=== PATIENT | female | born 1985 | race Caucasian/White ===

== ENCOUNTER 2016-12-18 10:37 | Day surgery (SDC) | payer OTHER ==
[2016-12-18 12:22] VITALS: BMI 24.2
[2016-12-18] MEDS ORDERED: LACTATED RINGERS 1,000 ML IV ONE (12:33)
[2016-12-18] MEDS ORDERED: LIDOCAINE 1% 20 ML VIAL (10MG/ML) FOR IV START INTRADERMA ONE (12:45)
[2016-12-18] MEDS ORDERED: DEXAMETHASONE SOD PHOSPHATE 10 MG/ML 1 ML VIAL IV ONE (12:47)
[2016-12-18] MEDS ORDERED: ONDANSETRON 4 MG/2 ML VIAL IVP ONE (12:48)
--- NOTE | 2016-12-18 12:53 | P.GSHP ---
History of Present Illness H&P Date: 12/18/16 Chief Complaint: Right upper quadrant pain This a 31-year-old female who was seen in my office yesterday. The patient was initially seen at [facility] emergency room and diagnosed with cholelithiasis. Her liver function tests were normal. Patient was originally scheduled for surgery next week. However the patient developed right upper quadrant pain and nausea this morning. Patient is scheduled for laparoscopic cholecystectomy today. - Constitutional Constitutional: Reports as per HPI Past Medical History Past Medical History: Seizure Disorder Additional Past Medical History / Comment(s): LAST SEIZURE 3 YRS AGO History of Any Multi-Drug Resistant Organisms: None Reported Past Surgical History: Section, Tubal Ligation Additional Past Surgical History / Comment(s): X 3 Past Anesthesia/Blood Transfusion Reactions: No Reported Reaction Past Psychological History: No Psychological Hx Reported Smoking Status: Current every day smoker Past Alcohol Use History: Occasional Past Drug Use History: None Reported Medications and Allergies Home Medications Medication Instructions Recorded Confirmed Type No Known Home Medications [No 12/18/16 12/18/16 History Known Home Medications] Allergies Allergy/AdvReac Type Severity Reaction Status Date / Time morphine Allergy Rash/Hives Verified 12/18/16 12:23 Surgical - Exam Vital Signs Temp Pulse Resp BP Pulse Ox 98.5 F 83 16 104/68 99 12/18/16 12:26 12/18/16 12:26 12/18/16 12:26 12/18/16 12:26 12/18/16 12:26 - General well developed, no distress - Eyes PERRL - ENT normal pinna - Neck no masses - Respiratory normal expansion - Cardiovascular Rhythm: regular - Abdomen Mild right upper quadrant pain Abdomen: soft Assessment and Plan Plan: Cholelithiasis Cholecystitis We'll perform laparoscopic cholecystectomy
[2016-12-18] MEDS ORDERED: ceFAZolin 2 GM in SODIUM CHLORIDE 0.9% 100 ML IVPB ONE (13:00)
[2016-12-18] MEDS ORDERED: HEPARIN SODIUM,PORCINE 5,000 UNIT/ML 1 ML VIAL SQ ONE (13:02)
[2016-12-18] MEDS ORDERED: PROPOFOL 10 MG/ML 20 ML VIAL IV ONE (13:19)
[2016-12-18] MEDS ORDERED: ROCURONIUM BROMIDE 10 MG/ML 10 ML VIAL IV ONE (13:19)
[2016-12-18] MEDS ORDERED: GLYCOPYRROLATE 0.2 MG/ML 2 ML VIAL ONE (13:19)
[2016-12-18] MEDS ORDERED: MIDAZOLAM 2 MG/2 ML VIAL ONE (13:19)
[2016-12-18] MEDS ORDERED: LIDOCAINE 1% INJ 10MG/ML (20 ML MDV) ONE (13:19)
[2016-12-18] MEDS ORDERED: SUCCINYLCHOLINE CHLORIDE 100 MG/5 ML SYR IV ONE (13:19)
[2016-12-18] MEDS ORDERED: HYDROmorphone (PF) 1 MG/ML ONE (13:19)
[2016-12-18] MEDS ORDERED: NEOSTIGMINE 1 MG/ML 10 ML VIAL ONE (13:19)
[2016-12-18] MEDS ORDERED: fentaNYL (PF) 50 MCG/ML 2 ML AMP ONE (13:19)
[2016-12-18] MEDS ORDERED: BUPIVACAIN-EPI 0.25%-1:200,000 30 ML VIAL SQ ONE (13:35)
--- NOTE | 2016-12-18 14:07 | P.OP ---
Date of Procedure: 12/18/16 Preoperative Diagnosis: Cholecystitis Postoperative Diagnosis: Cholecystitis Procedure(s) Performed: Laparoscopic cholecystectomy Anesthesia: ELIZA Surgeon: Kyaw Busch Estimated Blood Loss (ml): 5 Pathology: other (Gallbladder) Condition: stable Disposition: PACU Description of Procedure: The patient was placed on the operating table. The patient received a general endotracheal tube anesthesia. The patients abdomen was prepped and draped in the usual sterile fashion. Through an infraumbilical stab incision, the fascia of the anterior abdominal wall was grasped with a pair of Kochers and then the Veress needle was placed in the peritoneal cavity. Position of the Veress needle was confirmed with positive drop test. The abdomen was then insufflated. After adequate insufflation, the 10 mm trocar was placed in the peritoneal cavity. Following this the laparoscope was placed in the peritoneal cavity. The patient was placed in the head-up, right side up position and then a 5 mm trocar was placed in the right lateral and right subcostal position under direct visualization. A 8 mm trocar was placed in the epigastric position. The gallbladder was grasped in the fundus and infundibulum. Traction on the gallbladder was placed in the lateral and the cephalad positions. The gallbladder appeared to be inflamed. The triangle of Calot was visualized.. The cystic duct was bluntly dissected until the union of the cystic duct and common bile duct was seen. The cystic duct was then ligated using 2-0 Ethibond suture and the tie knot device. The cystic duct was then divided and sealed with the Harmonic scissors. The cystic artery divided and sealed with the Harmonic scissors. The gallbladder was then removed from the liver bed using Harmonic scissors. The gallbladder was then extracted through the epigastric port site. Operative field was checked for any bleeding spots and Harmonic scissors was used to coagulate the liver bed. The abdomen was irrigated. The trocars were removed. The skin was closed using interrupted 3-0 Vicryl suture. Dermabond dressing were applied. The patient tolerated the procedure well.
[2016-12-18 14:16] VITALS: TEMP 98.1
[2016-12-18 14:19] VITALS: RESP 16
[2016-12-18] MEDS: HYDROmorphone 1 MG/ML 1 ML SYRINGE IVP ONE ×2 (14:51→14:59)
[2016-12-18 16:14] VITALS: PULSE 80
[2016-12-18 16:32] VITALS: BP 121/85
== END 2016-12-18 16:55 | disposition home or self-care (01) ==
LOC: OR 10:37
PROVIDERS: ATTEND Surgery
DX: K80.10 Calculus of gallbladder with chronic cholecystitis without obstruction (principal); F17.200 Nicotine dependence, unspecified, uncomplicated; Z88.5 Allergy status to narcotic agent
CPT/HCPCS: 81025; 88304; 47562; J2250; J1644; J1100; J2710; J0690; J2405; J2001; J3010; J1170; J0330; J2704

== ENCOUNTER → 2018-05-06 | Outpatient (CLI) | payer OTHER ==
--- NOTE | 2018-05-06 09:56 | MM ---
Reason for exam: clinical finding. History: Took hormonal contraceptives for 3 years beginning at age 15. Physical Findings: Nurse did not find any significant physical abnormalities on exam. MG Diagnostic Mammo w CAD DAISHA Bilateral CC and MLO view(s) were taken. The breast tissue is heterogeneously dense. This may lower the sensitivity of mammography. There is no discrete abnormality. These results were verbally communicated with the patient and result sheet given to the patient on 05/06/18. ASSESSMENT: Negative, BI-RAD 1 RECOMMENDATION: Routine screening mammogram of both breasts at age 36. Manage patient on a clinical basis.
--- NOTE | 2018-05-06 10:01 | USB ---
Reason for exam: clinical finding. History: Took hormonal contraceptives for 3 years beginning at age 15. US Breast BILAT Right complete breast ultrasound includes all four quadrants, the retroareolar region and axilla. Finding demonstrates a 8 x 4 x 9mm lobular, cystic cluster at 10 o'clock. Left complete breast ultrasound includes all four quadrants, the retroareolar region and axilla. Finding demonstrates a 4 x 3 x 5cm oval, cystic lesion at 1 o'clock. These results were verbally communicated with the patient and result sheet given to the patient on 05/06/18. ASSESSMENT: Benign, BI-RAD 2 RECOMMENDATION: Routine screening mammogram of both breasts at age 36. Manage patient on a clinical basis.
== END | disposition home or self-care (01) ==
LOC: RADMAMWWP 07:55
PROVIDERS: ATTEND Family Medicine
DX: N64.4 Mastodynia (principal)
CPT/HCPCS: 77066

== ENCOUNTER → 2018-07-20 | Outpatient (CLI) | payer OTHER ==
[2018-07-20 11:55] VITALS: BP 118/79; PULSE 92; RESP 12; TEMP 97; BMI 29.9
--- NOTE | 2018-07-20 12:46 | P.GSHP ---
History of Present Illness H&P Date: 07/20/18 Patient is a 32 year old white female with a complaint of bilateral breast pain , but greater on the right. The pain is not related to her menstrual periods. The pain is constant. She had a bilateral mammogram done on which revealed heterogeneously dense breast bilaterally with no discrete lesions. She subsequently underwent bilateral ultrasound on 05-06-18 which revealed in the right breast and 8 x 9 mm lobular cystic cluster at 10:00 and in the left breast a 4 x 5 cm oval cystic lesion at 1:00. The patient has no history of any trauma to her breast or infection in the breast. The patient drinks about 10 oz of pepsi/day. She does not drink coffee or tea. She does not eat any large quantities of chocolate. The patient smokes approximately half a pack per day, for approximately 11 years. She lives with her boyfriend who also smokes. Family History: 1. sister: liver hepatoblastoma at 6 months old 2. maternal aunt: skin cancer 3. father: throat cancer (smoker) Hormonal History: menarche: 13 : 4, 1 , first at 18, breast fed: none preiods: regular; 1/month BCP: none hormones: none Past surgical history: 1. gallbladder 2. 3 c-sections 3. tubal-ligation Past medical history: 1. epilepsy not had a seizure in several years ALLERGIES: Morphine causes hives Social history: Smoking: Half a pack per day for approximately 11 years Alcohol:1/2 pint /day of whiskey drugs: none - Constitutional Constitutional: Reports sweats - EENT Comment: tongue a white crust on the side of tongue, swabbed by Dr. Lelo Otto Eyes: denies blurred vision, denies pain Ears: deny: decreased hearing, tinnitus Ears, nose, mouth and throat: Denies headache, Denies sore throat - Breasts Breasts: bilateral: as per HPI - Cardiovascular Cardiovascular: Denies chest pain, Denies shortness of breath - Respiratory Comment: smoker Respiratory: Denies cough, Denies 7 - Gastrointestinal Gastrointestinal: Denies abdominal pain, Denies diarrhea, Denies nausea, Denies vomiting - Genitourinary (Female) Genitourinary: Denies dysuria, Denies hematuria - Menstruation Menstruation: Reports as per HPI - Musculoskeletal Comment: none Musculoskeletal: Denies myalgias - Integumentary Integumentary: Denies pruritus, Denies rash - Neurological Comment: seizures since 6 months not have a recent seizure Neurological: Denies numbness, Denies weakness - Psychiatric Psychiatric: Denies anxiety, Denies depression - Endocrine Endocrine: Reports weight change - Hematologic/Lymphatic Comment: none - Allergic/Immunologic Comment: morphine Allergic/Immunologic: Reports as per HPI Past Medical History Past Medical History: Seizure Disorder Additional Past Medical History / Comment(s): LAST SEIZURE 3 YRS AGO History of Any Multi-Drug Resistant Organisms: None Reported Past Surgical History: Section, Tubal Ligation Additional Past Surgical History / Comment(s): X 3 Past Anesthesia/Blood Transfusion Reactions: No Reported Reaction Past Psychological History: No Psychological Hx Reported Smoking Status: Current every day smoker Past Alcohol Use History: Occasional Past Drug Use History: None Reported Medications and Allergies Home Medications Medication Instructions Recorded Confirmed Type Escitalopram [Lexapro] 10 tab PO DAILY 07/20/18 07/20/18 History Allergies Allergy/AdvReac Type Severity Reaction Status Date / Time morphine Allergy Rash/Hives Verified 12/18/16 12:23 Surgical - Exam Vital Signs Temp Pulse Resp BP Pulse Ox 97 F L 92 12 118/79 100 07/20/18 11:51 07/20/18 11:51 07/20/18 11:51 07/20/18 11:51 07/20/18 11:51 BMI 30kg/m2 - General well developed, moderate distress - Eyes normal ocular movement - ENT no hearing loss, no congestion - Neck no masses, trachea midline - Respiratory normal respiratory effort, clear to auscultation - Cardiovascular Rhythm: regular Heart Sounds: normal: S1, S2 - Abdomen Abdomen: soft, non tender, no guarding, no rigid, no rebound - Integumentary normal turger - Neurologic no disoriented, no combative - Musculoskeletal normal gait, normal posture - Psychiatric oriented to time, oriented to person, oriented to place, speech is normal, memory intact Breast examination: Right breast: Multi-positional exam fibrocystic changes stents breast no dominant masses or nodules of concern Right axilla: No adenopathy of concern Left breast: Multi-positional exam dense breast, fibrocystic changes, no discrete masses or nodules of concern, nipple retracts when patient raises her arms but comes right back out again Left axilla: No adenopathy of concern Addendum: The patient states that her nipple is been like this for many years Results Mammogram and ultrasound results reviewed Assessment and Plan Assessment: Impression: 1. Bilateral breast pain/not cylical 2. Fibrocystic changes bilaterally no radiographic evidence of malignancy 3.depression 4. seizure disorder 5. No evidence of any malignancy at this time Plan: 1. I have given the patient the book by Poppy John regarding breast pain I believe the pain is fibrocystic in nature related to the caffeine intake as well as smoking 2. We have discussed options to try to decrease the breast pain including avoiding caffeine and stopping smoking and primrose oil 3. Medical management of medical problems Again I discussed with the patient and her boyfriend that the pain is most likely fibrocystic in nature. I believe it may be related to her caffeine intake and nicotine use. We have discussed stopping these as well as beginning to use primrose oil. The patient understands this and will follow up in approximately 3 months time to see if modification of her behavior has affected the breast pain. Cc: Dr. Jami Jaimes
== END ==
LOC: WWCWWP 11:09
PROVIDERS: ATTEND Surgery
DX: Z53.9 Procedure and treatment not carried out, unspecified reason (principal)

== ENCOUNTER → 2018-10-20 | Outpatient (CLI) | payer OTHER ==
[2018-10-20 16:20] LABS: HCT 36.8 % (34.0-46.0); HGB 12.5 gm/dL (11.4-16.0); MCH 32.5 pg (25.0-35.0); MCHC 34.1 g/dL (31.0-37.0); MCV 95.4 fL (80.0-100.0); Platelet Count 171 k/uL (150-450); RBC 3.85 m/uL (3.80-5.40); RDW 12.6 % (11.5-15.5); WBC 5.5 k/uL (3.8-10.6)
[2018-10-20 16:45] LABS: T4, Free (Free Thyroxine) 1.14 ng/dL (0.78-2.19)
[2018-10-21 03:13] LABS: Progesterone 0.3 ng/mL
--- NOTE | 2018-10-21 05:25 | US ---
EXAMINATION TYPE: US pelvic complete DATE OF EXAM: 10/20/2018 COMPARISON: NONE CLINICAL HISTORY: 33-year-old female N93.8 DUB. TECHNIQUE: Transabdominal (TA Date of LMP: 10/17/2018 FINDINGS: EXAM MEASUREMENTS: Uterus: 10.0 x 3.9 x 5.3 cm Endometrial Stripe: 0.6 cm Right Ovary: 2.9 x 1.4 x 1.8 cm Left Ovary: 2.1 x 1.8 x 1.9 cm 1. Uterus: Anteverted with heterogeneous echotexture of the myometrium. No focal lesion. 2. Endometrium: wnl 3. Right Ovary: wnl with small follicles. 4. Left Ovary: wnl with small follicles. 5. Bilateral Adnexa: wnl 6. Posterior cul-de-sac: no free fluid IMPRESSION: 1. Heterogeneous myometrium could represent diffuse small fibroid change or adenomyosis. 2. Otherwise, normal follicular change in both ovaries. No specific abnormality otherwise seen on tra nsabdominal scanning.
== END | disposition home or self-care (01) ==
LOC: RADUSWWP 15:28
PROVIDERS: ATTEND Obstetrics & Gynecology
DX: N93.8 Other specified abnormal uterine and vaginal bleeding (principal); Z13.29 Encounter for screening for other suspected endocrine disorder
CPT/HCPCS: 36415; 76856; 82670; 83001; 83002; 84144; 84146; 84439; 84443; 84479; 85027

== ENCOUNTER → 2018-12-17 | Outpatient (CLI) | payer OTHER ==
[2018-12-17 15:24] VITALS: BP 112/76; PULSE 89; RESP 18; TEMP 98; BMI 34.2
--- NOTE | 2018-12-17 16:04 | P.PN ---
Subjective Progress Note Date: 12/17/18 Principal diagnosis: breast pain The patient is a 33 year old white female who was initially seen in July 2018. At that time she was complaining of bilateral breast pain. We discussed at that time that the pain was most likely fibrocystic in nature and at that time she was drinking Pepsi on a daily basis. She also smokes approximately half a pack per day and lives with her boyfriend who also smokes. The patient states that she is drinking decreased Pepsi at this time. However she and her boyfriend still smoke. She does not need any chocolate and large quantities. The patient has had a 50 pound weight gain over the past 5 months and contributes increased in breast size to the weight gain. It was after her breast increased in size that she noted the discomfort. The pain is not cyclical. Her right breast is larger than her left breast and when she does have pain it is usually greater on the right side than the left. Family history: 1. Sr.: Liver hepatoblastoma 6 months old 2. Maternal aunt skin cancer 3. Father throat cancer Hormonal history: Menarche: 13 Pregnancies: For, one , first live is 18, press-fit: None Periods: Regular: 1. Month control pills: Negative Hormones: Negative Past surgical history: 1. Cholecystectomy 2. 2 C-sections 2. Tubal ligation Past medical history: 1. Epilepsy she has not had a seizure in several years Social history: Smoking: Half a pack per day for approximately 11 years Alcohol: One half pint per day of whiskey Objective - Vital Signs Vital signs: Vital Signs Temp 98.0 F 12/17/18 15:20 Pulse 89 12/17/18 15:20 Resp 18 12/17/18 15:20 BP 112/76 12/17/18 15:20 Pulse Ox 99 12/17/18 15:20 Intake & Output 12/16/18 12/17/18 12/17/18 18:59 06:59 18:59 Weight 96.162 kg - Exam BMI 34.2 - Constitutional General appearance: Present: obese - EENT Eyes: Present: EOMI ENT: Present: hearing grossly normal - Neck Neck: Present: normal ROM - Respiratory Respiratory: - Cardiovascular Rhythm: regular Heart sounds: - Gastrointestinal General gastrointestinal: Present: soft - Integumentary Integumentary: Present: normal turgor - Musculoskeletal Musculoskeletal: Present: gait normal - Psychiatric Psychiatric: Present: A&O x's 3, appropriate affect, intact judgment & insight - Additional findings Additional findings: Breast examination: Right breast: Multi-positional exam fibrocystic changes, right breast slightly larger than left breast, tattoo over the right breast, no dominant masses or nodules of concern Right axilla: No adenopathy of concern Left breast: Multi-positional exam fibrocystic changes no dominant masses or nodules of concern Left axilla: No adenopathy of concern Assessment and Plan Assessment: Impression: 1. Mastodynia improved 2. Patient has decreased caffeine intake 3. Fibrocystic breast changes 4. Family history of cancer 5. No evidence of cancer at this time 6. Depression 7. Seizure disorder Plan: 1. Continue present therapy 2. Repeat bilateral mammogram at 36 3. Position exam is 6 months to see sooner if any changes in her breasts for which she is concerned Cc: Dr. Jami Vasques
== END | disposition home or self-care (01) ==
LOC: WWCWWP 15:01
PROVIDERS: ATTEND Surgery
DX: Z53.9 Procedure and treatment not carried out, unspecified reason (principal)

== ENCOUNTER 2019-04-08 08:38 | Day surgery (SDC) | payer OTHER ==
[2019-04-06 11:59] VITALS: BMI 36.4
[~2019-04-08 08:38] MED LIST: LACTATED RINGERS 1,000 ML IV SCH; LIDOCAINE 1% 20 ML VIAL (10MG/ML) FOR IV START INTRADERMA PRN
[2019-04-08 09:29] VITALS: RESP 16; TEMP 97.9
[2019-04-08] MEDS ORDERED: LACTATED RINGERS 1,000 ML IV ONE (10:50)
[2019-04-08] MEDS ORDERED: PROPOFOL 10 MG/ML 20 ML VIAL IV ONE (10:51)
[2019-04-08] MEDS ORDERED: MIDAZOLAM 2 MG/2 ML VIAL ONE (10:51)
--- NOTE | 2019-04-08 11:35 | P.PCN ---
Date of Procedure: 04/08/19 Procedure(s) Performed: Procedures: 1. Esophagogastroduodenoscopy and biopsy. 2. Colonoscopy and biopsy. Preoperative diagnosis: Rectal bleeding, change in bowels and gastroesophageal reflux. Postoperative diagnosis: 1. Small sliding hiatal hernia with no obvious esophagitis or complicated reflux disease. 2. Mild antral gastritis. 3. Normal colon exam with only finding of low-grade internal hemorrhoids and prominent anal papillae but no evidence of inflammatory bowel disease or bleeding. 4. Biopsies obtained from the duodenum, antrum, esophagus and right colon. Preparation: HalfLytely prep. Sedation: Was provided by anesthesia. Brief clinical history: The patient is a 33-year-old female who was evaluated in the office earlier this month for painless rectal bleeding and intermittent diarrhea as well as heartburn. The bleeding is described as bright [place]. Heartburn have been associated with some discomfort in the epigastric area as well. She took Tums which was working but not anymore and has switched to Prilosec. She gets nausea but no vomiting or weight loss. Procedure: With the patient on her left lateral decubitus position and after informed consent and adequate sedation, I passed the Olympus-GIF H190 video upper endoscope through the cricopharyngeus down the esophagus. GE junction was around 40 cm from the incisors and there was a small sliding hiatal hernia but no obvious esophagitis or complicated reflux disease. The endoscope was then passed into the stomach which was insufflated with air and inspected in detail including the retroflex view in the cardia. There was some mottling and erythema in the antrum but no ulcers or erosions. Pyloric channel, duodenal bulb, post bulbar area and descending duodenum appeared within normal limits. Because of her symptoms, I obtained biopsies from the duodenum, antrum and esophagus then the endoscope was withdrawn and I proceeded to perform the colonoscopy. Perianal area did not show any fissures or fistulas. There were no masses felt on digital rectal examination. The Olympus CFH 190L video colonoscope was then inserted in the rectum in the usual fashion and advanced to the cecum. The mucosa appeared healthy. No polyps or tumors were seen or any obvious diverticular disease. I obtained biopsies from the right colon to rule out microscopic colitis. I retroflexed the endoscope in the rectum before the endoscope was withdrawn. Prominent anal papillae and low-grade internal hemorrhoids were noted but there was no evidence of bleeding. The patient tolerated the procedure well. Plan: The patient was reassured. She wi'll follow-up with you as planned and I will keep you updated on her progress.
[2019-04-08 11:49] VITALS: BP 114/80; PULSE 70
== END 2019-04-08 12:23 | disposition home or self-care (01) ==
LOC: ORWHC2ENDO 08:38
DX: K29.50 Unspecified chronic gastritis without bleeding (principal); K44.9 Diaphragmatic hernia without obstruction or gangrene; K64.8 Other hemorrhoids; R19.4 Change in bowel habit; K21.9 Gastro-esophageal reflux disease without esophagitis; F10.10 Alcohol abuse, uncomplicated; F17.210 Nicotine dependence, cigarettes, uncomplicated; Z79.899 Other long term (current) drug therapy; Z98.51 Tubal ligation status; Z86.69 Personal history of other diseases of the nervous system and sense organs; Z88.5 Allergy status to narcotic agent
CPT/HCPCS: 81025; 88305; 45380; 43239; J2250; J2704

== ENCOUNTER → 2020-12-29 | Outpatient (CLI) | payer OTHER ==
--- NOTE | 2020-12-29 14:47 | XR ---
EXAMINATION TYPE: XR knee complete LT DATE OF EXAM: 12/29/2020 COMPARISON: NONE HISTORY: Pain TECHNIQUE: Three views are submitted. FINDINGS: Joint spaces are preserved. Osseous structures are intact. No acute fracture seen. IMPRESSION: 1. No acute fracture or dislocation.
== END ==
LOC: RADXRMAIN 14:19
PROVIDERS: ATTEND Family Medicine
DX: M25.562 Pain in left knee (principal)

== ENCOUNTER → 2021-08-01 | Outpatient (CLI) | payer OTHER ==
--- NOTE | 2021-08-01 10:56 | XR ---
Right femur HISTORY: M62.9 DISORDER OF MUSCLE Frontal and lateral views of the right femur submitted Bone mineralization, joint spaces and alignment are maintained. No fracture or dislocation. No eviden t joint effusion. Soft tissues within normal limits. There are overlying artifacts present. IMPRESSION: Normal right femur.
== END | disposition home or self-care (01) ==
LOC: RADXRMAIN 09:45
PROVIDERS: ATTEND Family Medicine
DX: M62.9 Disorder of muscle, unspecified (principal)

== ENCOUNTER → 2021-08-10 | Outpatient (CLI) | payer OTHER ==
--- NOTE | 2021-08-10 16:20 | US ---
EXAMINATION TYPE: US extremity nonvasc complt RT DATE OF EXAM: 08/10/2021 COMPARISON: NONE CLINICAL HISTORY: M62.9 DISORDER OF MUSCLE. Lump on lower anterior thigh for the past month No mass or fluid collection seen in area of concern. IMPRESSION: Limited ultrasound shows no discrete mass. Additional evaluation could be performed with CT or MRI with overlying marker as indicated.
== END | disposition home or self-care (01) ==
LOC: RADUSWWP 15:37
PROVIDERS: ATTEND Family Medicine
DX: R22.41 Localized swelling, mass and lump, right lower limb (principal)

== ENCOUNTER → 2023-06-14 | Outpatient (CLI) | payer OTHER ==
[2023-06-14 13:43] LABS: Basophils # (A) 0.04 X 10*3/uL (0.00-0.10); Basophils % (A) 0.7 %; Eosinophils # (A) 0.06 X 10*3/uL (0.04-0.35); Eosinophils % (A) 1.1 %; HCT 41.4 % (37.2-46.3); HGB 13.4 d/dL (12.0-15.0); Lymphocytes # (A) 1.27 X 10*3/uL (0.90-5.00); Lymphocytes % (A) 22.7 %; MCH 30.4 pg (27.0-32.0); MCHC 32.4 d/dL (32.0-37.0); MCV 93.9 FL (80.0-97.0); Mean Platelet Volume 12.6 FL (9.5-12.2); Monocytes # (A) 0.43 X 10*3/uL (0.20-1.00); Monocytes % (A) 7.7 %; NRBC Per 100 WBC 0 X 10*3/uL (0.00-0.01); Neutrophils # (A) 3.78 X 10*3/uL (1.80-7.70); Neutrophils % (A) 67.6 %; Platelet Count 198 X 10*3/uL (140-440); RBC 4.41 X 10*6/uL (4.10-5.20); RDW 12.1 % (11.5-14.5); WBC 5.59 X 10*3/uL (4.50-10.00)
[2023-06-14 14:04] LABS: ALT 31 U/L (8-44); AST 17 U/L (13-35); Albumin 4.4 d/dL (3.8-4.9); Albumin/Globulin Ratio 1.83 Ratio (1.60-3.17); Alkaline Phosphatase 85 U/L (41-126); BUN/Creat Ratio 15.12 Ratio (12.00-20.00); Blood Urea Nitrogen 12.1 mg/dL (9.0-27.0); Calcium 9.3 mg/dL (8.7-10.3); Carbon Dioxide 24.6 mmol/L (21.6-31.8); Chloride 106 mmol/L (96-109); Chol/HDL Ratio 2.82 Ratio; Globulin 2.4 d/dL (1.6-3.3); Glucose 95 mg/dL (70-110); LDL Cholesterol,Calculated 68.5 mg/dL (0.0-131.0); Sodium 140 mmol/L (135-145); Total Bilirubin 0.6 mg/dL (0.3-1.2); Total Protein 6.8 d/dL (6.2-8.2); VLDL Calculation 14.78 mg/dL (5.00-40.00)
== END | disposition home or self-care (01) ==
LOC: LABWHC1 08:28
PROVIDERS: ATTEND Family Medicine
DX: Z13.220 Encounter for screening for lipoid disorders (principal); Z11.59 Encounter for screening for other viral diseases; F41.9 Anxiety disorder, unspecified
CPT/HCPCS: 36415; 80053; 80061; 84443; 85025; 86803